=== PATIENT | female | born 1995 | race Caucasian/White ===

== ENCOUNTER 2020-04-25 23:30 | Outpatient (CLI) | payer OTHER ==
[~2020-04-25 23:30] MED LIST: AMOXICILLIN875 MG PO; BACTRIM DS TAB1 EACH PO; COLACE100 MG PO; ERYTHROMYCIN OP1 GM OP; FLAGYL500 MG PO; KEFLEX500 MG PO
== END 2020-04-26 04:32 | disposition home or self-care (01) ==
LOC: GENOP 23:30
PROVIDERS: Obstetrics & Gynecology
DX: O46.93 Antepartum hemorrhage, unspecified, third trimester (principal); Z3A.29 29 weeks gestation of pregnancy
CPT/HCPCS: 59025; 80307; 81001; 96360; 96361; J7121

== ENCOUNTER 2020-07-04 19:50 | Outpatient (CLI) | payer OTHER | END 2020-07-04 21:22 | disposition home or self-care (01) | LOC: GENOP 19:50 | DX: O42.92 Full-term premature rupture of membranes, unspecified as to length of time between rupture and onset of labor (principal); Z3A.39 39 weeks gestation of pregnancy | CPT/HCPCS: 81001; 83518; G0463 ==

== ENCOUNTER 2020-07-09 15:54 | Inpatient (IN) | payer OTHER ==
[~2020-07-09] VITALS: Ht 165.1 cm; Wt 77.1 kg
[2020-07-09 17:26] LABS: HEMOGLOBIN 9.3 gm/dl (12.3-15.3); RED BLOOD COUNT 3.84 M/UL (4.00-5.10); WHITE BLOOD COUNT 10.1 K/UL (4.5-11.0)
[2020-07-10] MEDS ORDERED: BUPRENORPHIN-N1 EACH SL (12:03)
[2020-07-10] MEDS ORDERED: IBUPROFEN800 MG PO (12:03)
[2020-07-10] MEDS ORDERED: DOCUSATE SODIU100 MG PO (12:03)
[2020-07-10] MEDS ORDERED: TYLENOL EXTRA500 MG PO (12:03)
[2020-07-11 06:27] LABS: HEMOGLOBIN 8.9 gm/dl (12.3-15.3)
[2020-07-11 08:14] LABS: HIV SCREEN 4TH GENERATION WRFX Non Reactive (Non Reactive)
[2020-07-11 15:10] LABS: TREPONEMA PALLIDUM ANTIBODIES Non Reactive (Non Reactive)
[2020-07-12 03:11] LABS: RUBELLA ANTIBODIES, IGG 3.88 index (Immune >0.99)
== END 2020-07-12 16:10 | disposition home or self-care (01) | DRG 806 ==
LOC: GENOP 15:54 → OB 16:14
PROVIDERS: Obstetrics & Gynecology; ADMIT Obstetrics & Gynecology
PROC: 0U7C7ZZ Dilation of Cervix, Via Natural or Artificial Opening (ICD-10-PCS; principal; 2020-07-09)
PROC: 4A1HX4Z Monitoring of Products of Conception, Cardiac Electrical Activity, External Approach (ICD-10-PCS; principal; 2020-07-09)
PROC: 10907ZC Drainage of Amniotic Fluid, Therapeutic from Products of Conception, Via Natural or Artificial Opening (ICD-10-PCS; 2020-07-10)
PROC: 10E0XZZ Delivery of Products of Conception, External Approach (ICD-10-PCS; 2020-07-10)
DX: O99.324 Drug use complicating childbirth (principal); F11.20 Opioid dependence, uncomplicated; Z37.0 Single live birth; O99.334 Smoking (tobacco) complicating childbirth; Z3A.39 39 weeks gestation of pregnancy; F41.9 Anxiety disorder, unspecified; F32.9 Major depressive disorder, single episode, unspecified; F17.210 Nicotine dependence, cigarettes, uncomplicated; B19.20 Unspecified viral hepatitis C without hepatic coma; Z20.822 Contact with and (suspected) exposure to COVID-19; K56.41 Fecal impaction; Z80.9 Family history of malignant neoplasm, unspecified; Z82.49 Family history of ischemic heart disease and other diseases of the circulatory system; Z83.3 Family history of diabetes mellitus
CPT/HCPCS: 36415; 51702; 80307; 81001; 82800; 85014; 85018; 85025; 86762; 86780; 86900; 86901; 87389; 90715; J2590; J7120

== ENCOUNTER 2020-11-30 22:43 | Emergency (ER) | payer OTHER ==
[~2020-11-30 22:43] MED LIST changes: +BUPRENORPHIN-N1 EACH SL; +DOCUSATE SODIU100 MG PO; +IBUPROFEN800 MG PO; +TYLENOL EXTRA500 MG PO
== END 2020-12-01 00:08 | disposition home or self-care (01) ==
LOC: ER1 22:43
DX: S61.012A Laceration without foreign body of left thumb without damage to nail, initial encounter (principal); F17.210 Nicotine dependence, cigarettes, uncomplicated; W26.8XXA Contact with other sharp object(s), not elsewhere classified, initial encounter
CPT/HCPCS: 73130; 99283

== ENCOUNTER 2021-09-11 05:50 | Inpatient (IN) | payer OTHER ==
[~2021-09-11] VITALS: Ht 165.1 cm; Wt 87.1 kg
[2021-09-11 07:10] LABS: HEMOGLOBIN 9.4 gm/dl (12.3-15.3); RED BLOOD COUNT 4.04 M/UL (4.00-5.10)
[2021-09-11] MEDS ORDERED: DOCUSATE SODIU250 MG PO (16:52)
[2021-09-11] MEDS ORDERED: IBUPROFEN600 MG PO (16:52)
[2021-09-12 05:00] LABS: HEMOGLOBIN 8.6 gm/dl (12.3-15.3)
== END 2021-09-13 19:23 | disposition home or self-care (01) | DRG 807 ==
LOC: OB 05:50
PROVIDERS: ADMIT Obstetrics & Gynecology
PROC: 10E0XZZ Delivery of Products of Conception, External Approach (ICD-10-PCS; principal; 2021-09-11)
PROC: 3E033VJ Introduction of Other Hormone into Peripheral Vein, Percutaneous Approach (ICD-10-PCS; 2021-09-11)
PROC: 10907ZC Drainage of Amniotic Fluid, Therapeutic from Products of Conception, Via Natural or Artificial Opening (ICD-10-PCS; 2021-09-11)
PROC: 4A1HXCZ Monitoring of Products of Conception, Cardiac Rate, External Approach (ICD-10-PCS; 2021-09-11)
DX: O99.334 Smoking (tobacco) complicating childbirth (principal); Z37.0 Single live birth; Z3A.39 39 weeks gestation of pregnancy; Z28.310 Unvaccinated for COVID-19; Z20.822 Contact with and (suspected) exposure to COVID-19; F17.210 Nicotine dependence, cigarettes, uncomplicated; Z82.49 Family history of ischemic heart disease and other diseases of the circulatory system; Z81.8 Family history of other mental and behavioral disorders; Z80.9 Family history of malignant neoplasm, unspecified; Z83.3 Family history of diabetes mellitus; Z82.5 Family history of asthma and other chronic lower respiratory diseases; Z84.1 Family history of disorders of kidney and ureter; Z82.0 Family history of epilepsy and other diseases of the nervous system
CPT/HCPCS: 36415; 80307; 81001; 85014; 85018; 85025; J2405; J2590; J7120; U0002